=== PATIENT | female | born 1975 ===

== ENCOUNTER 2022-04-04 21:39 | Emergency (ER) | payer SELFPAY ==
[2022-04-05] MEDS ORDERED: SODIUM CHLORIDE 0.9% 1000 ML 1,000 ML IV ONE (01:28)
[2022-04-05] MEDS ORDERED: dexAMETHasone 4 MG/ML VIAL IV ONE (01:28)
[2022-04-05] MEDS ORDERED: FAMOTIDINE 20 MG/2 ML INJ IV ONE (01:28)
[2022-04-05] MEDS ORDERED: diphenhydrAMINE 50 MG/ML VIAL IV ONE (01:29)
--- NOTE | 2022-04-05 02:34 | Emergency Department Report ---
ED General Adult HPI - General Chief complaint: Allergic Reaction Stated complaint: ANGIOEDEMA Time Seen by Provider: 04/05/22 01:23 Source: patient Mode of arrival: Ambulatory Limitations: Language Barrier - History of Present Illness Initial comments: 47-year-old female no past medical history reports to the ER after eating some shrimp and meat at a local restaurant. Patient reports her lips became tingly and started to swell up as well as swelling around bilateral eyes. Patient denies shortness of breath. No airway concern. Nonlabored breathing. No other acute signs or symptoms noted. - Related Data Previous Rx's Medication Instructions Recorded Last Taken Type predniSONE [Deltasone] 20 mg PO QDAY 5 Days #5 tab 04/05/22 Unknown Rx Allergies Allergy/AdvReac Type Severity Reaction Status Date / Time shellfish derived Allergy Angioedema Verified 04/04/22 22:24 ED Review of Systems ROS: Stated complaint: ANGIOEDEMA Other details as noted in HPI Comment: All other systems reviewed and negative Eyes: other (Bilateral eye swelling) ENT: other (Lip swelling) Respiratory: denies: shortness of breath ED Past Medical Hx - Past Medical History Previous Medical History?: No - Social History Smoking Status: Never Smoker Substance Use Type: None - Medications Home Medications: Home Medications Medication Instructions Recorded Confirmed Last Taken Type predniSONE [Deltasone] 20 mg PO QDAY 5 Days #5 tab 04/05/22 Unknown Rx ED Physical Exam - General Limitations: Language Barrier General appearance: alert, in no apparent distress - Head Head exam: Present: atraumatic, normocephalic - Eye Eye exam: Present: normal appearance, PERRL, EOMI, conjunctival injection, other (Bilateral eyelid swelling.) - ENT ENT exam: Present: mucous membranes moist, other (Upper and lower lip swelling.) - Neck Neck exam: Present: normal inspection - Respiratory Respiratory exam: Present: normal lung sounds bilaterally, other (No acute respiratory distress). Absent: respiratory distress, wheezes, rales, rhonchi - Cardiovascular Cardiovascular Exam: Present: regular rate, normal rhythm. Absent: systolic murmur, diastolic murmur, rubs, gallop - GI/Abdominal GI/Abdominal exam: Present: soft, normal bowel sounds - Extremities Exam Extremities exam: Present: normal inspection - Back Exam Back exam: Present: normal inspection - Neurological Exam Neurological exam: Present: alert, oriented X3 - Psychiatric Psychiatric exam: Present: normal affect, normal mood - Skin Skin exam: Present: warm, dry, intact, normal color. Absent: rash ED Course Vital Signs 04/04/22 09/07/15 22:22 02:50 Temperature 97.8 F 97.8 F Pulse Rate 73 56 L Respiratory 20 16 Rate Blood Pressure 108/54 Blood Pressure 103/57 [Right] O2 Sat by Pulse 98 98 Oximetry ED Medical Decision Making - Medical Decision Making 47-year-old female no past medical history reports to the ER after eating some shrimp and meat at a local restaurant. Patient reports her lips became tingly and started to swell up as well as swelling around bilateral eyes. Patient denies shortness of breath. No airway concern. Nonlabored breathing. No other acute signs or symptoms noted. PEbilateral eye swelling involving the eyelids. Upper and lower lip swelling. No airway concerns. No shortness of breath. Nonlabored breathing. Patient received Benadryl IV, Decadron IV, Pepcid IV along with 1 L of normal saline. Patient reports feeling better after receiving IV medication. There is decrease in swelling to patient's face and lips. Patient stable for discharge home. Patient went home with oral steroids for 5 days. Patient in no acute distress this time. Still no airway concerns reported or noted on physical exam. Patient agrees with plan of care verbalized understanding. [employer] interpretation services was used during this encounter. Vital Signs 04/04/22 09/07/15 22:22 02:50 Temperature 97.8 F 97.8 F Pulse Rate 73 56 L Respiratory 20 16 Rate Blood Pressure 108/54 Blood Pressure 103/57 [Right] O2 Sat by Pulse 98 98 Oximetry Critical care attestation.: If time is entered above; I have spent that time in minutes in the direct care of this critically ill patient, excluding procedure time. ED Disposition Clinical Impression: Allergic reaction to food Qualifiers: Encounter type: initial encounter Qualified Code(s): T78.1XXA - Other adverse food reactions, not elsewhere classified, initial encounter Disposition: 01 HOME / SELF CARE / HOMELESS Is pt being admited?: No Condition: Stable Instructions: Seafood Allergy, Food Allergy Prescriptions: predniSONE [Deltasone] 20 mg PO QDAY 5 Days #5 tab Referrals: BLAIRE DUBOIS MD [Primary Care Provider] - 3-5 Days Print Language: BULGARIAN
[2022-04-05 02:51] VITALS: BP 103/57
== END 2022-04-05 03:59 | disposition home or self-care (01) ==
LOC: ED 21:39 → EDBD 21:39 → ED 04-05 03:59
DX: L27.2 Dermatitis due to ingested food (principal); Z91.013 Allergy to seafood
CPT/HCPCS: 96361; 96374; 96375; 99282; J1100; J1200; J3490; J7030